=== PATIENT | female | born 1960 | race American Indian/Alaskan Native ===

== ENCOUNTER 2017-09-25 10:59 | Emergency (ER) | payer OTHER ==
[2017-09-25 10:59] VITALS: BMI 34.3
[2017-09-25 11:25] VITALS: RESP 18; TEMP 98.3; O2SAT 96
--- NOTE | 2017-09-25 11:44 | ED PDOC ---
Arrival/HPI - General Chief Complaint: Lower Extremity Problem/Injury Time Seen by Provider: 09/25/17 11:18 Historian: Patient - History of Present Illness Narrative History of Present Illness (Text): 09/25/17 11:24 A 57 year old female, with no significant past medical history, presents to the emergency department complaining of right knee pain. Patient reports 5 days ago , she was walking her dog when he felt a sudden twing in her right knee. Patient woke up the following morning and felt pain. States he has been resting and placing ice onto his right knee, but has had no relief. Notes experiencing pain when ambulating and has right knee swelling. Patient denies any trauma to right knee, any right ankle pain, hip pain, leg pain, or any other complaints. No PMD 09/25/17 17:24 Past Medical History - Provider Review Nursing Documentation Reviewed: Yes - Tetanus Immunization Tetanus Immunization: Unknown - Cardiac Hx Cardiac Disorders: Yes Hx Hypertension: Yes - Pulmonary Hx Respiratory Disorders: No - Neurological Hx Neurological Disorder: No - HEENT Hx HEENT Disorder: No - Renal Hx Renal Disorder: No - Endocrine/Metabolic Hx Endocrine Disorders: Yes Hx Diabetes Mellitus Type 2: Yes - Hematological/Oncological Hx Blood Disorders: No - Integumentary Hx Dermatological Disorder: No - Musculoskeletal/Rheumatological Hx Musculoskeletal Disorders: No - Gastrointestinal Hx Gastrointestinal Disorders: Yes Hx Gastroesophageal Reflux: Yes Other/Comment: H. Pylori, - Genitourinary/Gynecological Hx Genitourinary Disorders: No - Psychiatric Hx Psychophysiologic Disorder: Yes Hx Depression: Yes Hx Substance Use: No - Surgical History Hx Section: Yes Hx Eye Surgery: Yes Hx Hysterectomy: Yes - Anesthesia Hx Anesthesia: Yes Hx Anesthesia Reactions: No Family/Social History - Physician Review Nursing Documentation Reviewed: Yes Family/Social History: No Known Family HX Smoking Status: Heavy Smoker > 10 Cigarettes Daily Hx Alcohol Use: Yes Hx Substance Use: No Allergies/Home Meds Allergies/Adverse Reactions: Allergies metoclopramide [From Reglan] Allergy (Verified 09/25/17 11:22) RASH aspirin Adverse Reaction (Verified 09/25/17 11:22) VOMITING Home Medications: Home Meds Medication Instructions Recorded Confirmed Unobtainable 09/25/17 09/25/17 Review of Systems - Physician Review All systems were reviewed & negative as marked: Yes - Review of Systems Constitutional: absent: Other (no trauma to right knee) Respiratory: absent: SOB Cardiovascular: absent: Chest Pain Gastrointestinal: absent: Abdominal Pain, Constipation, Diarrhea, Nausea, Vomiting Musculoskeletal: Other (right knee pain and swelling; no ankle, leg, or hip pain.) Neurological: absent: Headache, Dizziness Physical Exam Vital Signs Reviewed: Yes Vital Signs Temp Pulse Resp BP Pulse Ox 09/25/17 13:00 73 18 118/72 96 09/25/17 11:22 98.3 F 100 H 18 154/91 H 96 Temperature: Afebrile Blood Pressure: Hypertensive Pulse: Regular Respiratory Rate: Normal Appearance: Positive for: Well-Appearing Pain Distress: None Mental Status: Positive for: Alert and Oriented X 3 - Systems Exam Lower Extremity: Present: NORMAL PULSES, Tenderness (mild tenderness to R patella, No erythema or warmth), Swelling (superior aspect of right knee), Other (left knee and left ankle normal inspection; right hip no bony tenderness) . No: Edema, CALF TENDERNESS, Normal ROM (full ROM, normal strength to right knee), Landon's Sign, Deformity, Temperature Abnormalties Medical Decision Making ED Course and Treatment: 09/25/17 11:28 Impression: 57 year old female with right knee pain. Physical exam shows right knee tenderness to patella and scant swelling to superior aspect of right knee, full ROM and strength to right knee, no bony hip tenderness Plan: -- Right Knee X-Ray -- Pepcid -- Toradol -- Reassess and disposition Progress Notes: Xray shows "Joint space narrowing in the patellofemoral joint." Patient placed in knee immobilizer and instructed to follow-up with PMD - RAD Interpretation Radiology Orders: 09/25/17 11:28 KNEE W PATELLA RIGHT 3 VIEW [RAD] Stat - Medication Orders Current Medication Orders: Discontinued Medications Famotidine (Pepcid) 20 mg PO STAT STA Stop: 09/25/17 11:29 Last Admin: 09/25/17 11:41 Dose: 20 mg Ketorolac Tromethamine (Toradol) 30 mg IM STAT STA Stop: 09/25/17 11:29 Last Admin: 09/25/17 11:42 Dose: 30 mg MAR Pain Assessment Document 09/25/17 11:42 RG (Rec: 09/25/17 11:47 RG [facility] [id number]) Pain Reassessment Is this a pain reassessment? Yes Sleep Is patient sleeping during reassessment? No Presence of Pain Presence of Pain Yes Pain Scale Used Pain Scale Used Numeric Location Left, Right or Bilateral Right Pain Location Body Site Knee Description Description Constant IM Administration Charges Document 09/25/17 11:42 RG (Rec: 09/25/17 11:47 RG [facility] [id number]) Injection Site MAR Injection Site Right Vastus Lateralis Charges for Administration # of IM Administrations 1 - Scribe Statement The provider has reviewed the documentation as recorded by the Kinseyibjaime Frazier Provider Scribe Attestation: All medical record entries made by the Scribe were at my direction and personally dictated by me. I have reviewed the chart and agree that the record accurately reflects my personal performance of the history, physical exam, medical decision making, and the department course for this patient. I have also personally directed, reviewed, and agree with the discharge instructions and disposition. Disposition/Present on Arrival - Present on Arrival Any Indicators Present on Arrival: No History of DVT/PE: No History of Uncontrolled Diabetes: No Urinary Catheter: No History of Decub. Ulcer: No History Surgical Site Infection Following: None - Disposition Have Diagnosis and Disposition been Completed?: Yes Diagnosis: Right knee pain Disposition: HOME/ ROUTINE Disposition Time: 12:50 Patient Plan: Discharge Condition: GOOD Discharge Instructions (ExitCare): Knee Sprain (ED), Knee Pain (ED) Additional Instructions: Follow-up with PMD within 2 days. If you have persistent pain your knee MRI of your knee to evaluate for ligamentous injury. Use knee immobilizer. Keep knee elevated. Rest and ice. Motrin or tylenol for pain. Return to ED if condition worsens. Forms: Handshake (Khmer)
[2017-09-25 13:00] VITALS: BP 118/72; PULSE 73
--- NOTE | 2017-09-25 15:29 | RAD ---
PROCEDURE: Right Knee Radiographs. HISTORY: R knee pain COMPARISON: None. FINDINGS: BONES: Normal. No fracture. JOINTS: Joint space narrowing is seen in the patellofemoral joint on the lateral side JOINT EFFUSION: None. OTHER FINDINGS: None. IMPRESSION: Joint space narrowing in the patellofemoral joint
== END 2017-09-25 13:07 | disposition home or self-care (01) ==
LOC: ED 10:59
DX: M25.561 Pain in right knee (principal)
CPT/HCPCS: 73562; 96372; 99284; J1885